=== PATIENT | female | born 1965 | race Asian ===

== ENCOUNTER 2017-01-06 19:32 | Emergency (ER) | payer SELFPAY ==
[2017-01-06] MEDS ORDERED: LORAZEPAM INJ 2 MG/1 ML VIAL ONE (19:43)
[2017-01-06] MEDS ORDERED: LEVETIRACETAM 1000 MG/NACL-ISO 1,000 MG/100 ML RTUPB IV ONE (19:48)
[2017-01-06] MEDS ORDERED: NORMAL SALINE 1000 ML 1,000 ML IV ONE ×2 (19:52→21:53)
--- NOTE | 2017-01-06 19:53 | ER Document Report ---
ED General - General Stated Complaint: POSSIBLE STROKE Time Seen by Provider: 01/06/17 19:36 Cannot obtain history due to: Unstable vital signs, Altered mental status Notes: Patient is a 51-year-old female with a past medical history of prior hemorrhagic strokes, prior seizures and hypertension, possible amyloidosis diagnosis who presents with EMS confused, left upper extremity contraction, after being found lying on the ground for an unknown period of time today by a family friend. Patient is nonverbal at time of arrival and unable to provide any meaningful history. EMS is uncertain of what language patient speaks although apparently she does speak some amount of [place]. She has not been following commands or talking to EMS. She currently lives by herself. She was last seen approximately 8 PM last evening. TRAVEL OUTSIDE OF THE [place] IN LAST 30 DAYS: No - Related Data Allergies/Adverse Reactions: No Known Allergies Allergy (Verified 11/07/14 18:23) Past Medical History - General Information source: Emergency Med Personnel Cannot obtain history due to: Mentally challenged, Unstable vital signs - Social History Smoking Status: Unknown if Ever Smoked Lives with: Alone Family History: Other - Unknown - Past Medical History Cardiac Medical History: Reports: Hx Hypertension Neurological Medical History: Reports: Hx Cerebrovascular Accident - HEMORRHAGIC , 05/01/2014, TRANSFERRED TO [facility] FOR Rx, Hx Seizures Endocrine Medical History: Reports: Hx Hyperthyroidism Review of Systems - Review of Systems -: Yes ROS unobtainable due to patient's medical condition Physical Exam - Vital signs Vitals: Temp Pulse Resp BP Pulse Ox 100.5 F H 98 13 201/135 H 98 01/06/17 19:35 01/06/17 19:35 01/06/17 19:35 01/06/17 19:35 01/06/17 19:35 Interpretation: Hypertensive, Febrile Notes: PHYSICAL EXAMINATION: GENERAL: Unresponsive to verbal questions, response to noxious stimuli with purposeful movements on the right upper and lower extremity. GCS 9 HEAD: Right-sided temporal parietal scalp hematoma EYES: Pupils equal round and reactive to light, extraocular movements intact, sclera anicteric, conjunctiva are normal. ENT: nares patent, oropharynx clear without exudates. Dry mucous membranes. NECK: supple without lymphadenopathy LUNGS: Breath sounds clear to auscultation bilaterally and equal. No wheezes rales or rhonchi. HEART: Regular tachycardia without murmurs ABDOMEN: Soft, bowel sounds present. No masses appreciated. EXTREMITIES: Normal range of motion, no pitting or edema. No cyanosis. NEUROLOGICAL: Purposeful movements of the right upper and lower extremities. Left upper extremity is in hyperflexion. Left lower external he hyperextends the pain but no purposeful movement PSYCH: GCS 9, no verbal response. SKIN: Warm, Dry, normal turgor, multiple bruises over the back, bilateral periscapular region and over the left hip Course - Re-evaluation Re-evalutation: 01/06/17 19:49 Patient arrives altered, nonverbal, a contracted left upper extremity although spontaneously moving all other extremities but does not follow commands. EMS is uncertain of what medications the patient normally takes for her baseline seizures and review of prior episodes in the emergency department does not document what patient takes at baseline although she does have a history of seizures. Shortly after arrival, patient proceeded to have a generalized tonic- clonic seizure with a mostly tonic component. She did have a brief period of desaturation during this episode to 55% which was relieved with a jaw thrust and supplemental oxygenation. Patient was given 2 mg of IV lorazepam with termination of the seizure. She will be loaded with 1000 mg of levetiracetam. Patient does have evidence of bruising along her back extensively as well as her her bilateral upper extremities and over her left hip. She was found on the floor of her house and currently lives by herself. History is obviously quite limited at this time secondary to patient's clinical presentation. However the provided history by EMS does elevate concern for possible intracranial hemorrhage given her fall in the shower 3 days ago and now altered mental status as well as recurrent seizures. Patient at time of arrival was noted to be severely hypertensive and again review of prior records shows that this is frequent for her presentations. She also has a low-grade rectal temperature of 100.5 after seizure activity. Will obtain [facility], CT of the head, chest x-ray, begin IV fluids, cultures and reassess frequently. Patient is critically ill at this time will require frequent reassessments. 01/06/17 20:06 I have been contacted by the radiologist was informed the patient has a parietal intraparenchymal hemorrhage as well as a subdural hematoma without any evidence of midline shift. Patient has had this in the past in [address] scan was reviewed. It appears patient may have a history of amyloidosis or a chronic vasculitis that she would have had at least 2 intercranial hemorrhages in the last 3 years at such a young age. On reassessment, patient's blood pressure continues to be elevated at 230 systolic. A nicardipine drip will be initiated targeting a systolic blood pressure 160 mmHg. I will continue to reassess the patient for need of airway protection. At the moment she is saturating 95% on room air, ventilating 16 times per minute. Vigorous sternal rub does cause the patient to grab my hand and begin to open her eyes but she does not answer my questions or follow my commands. At this time, I feel the risk of intubating the patient outweighs the benefit as she is protecting her airway at this time. 01/06/17 20:16 I have contacted [facility] for transfer as patient was transferred there in 2013 for spontaneous intracranial hemorrhage. Awaiting a callback 01/06/17 20:23 Patient is now moving all 4 extremity spontaneously and has required soft restraints. Will continue to monitor closely. Blood pressure is improving at this time 196 systolic and 5 of nicardipine. Will continue to titrate to a systolic goal of 160 01/06/17 20:53 I spoke with [facility] ICU attending, he has requested pressure be targeted to 140mmHG or less given possible history of amyloidosis. Will also obtain a CT of the C-spine and apply a cervical collar. Patient continues to protect her airway. With sternal rub she does again try to reach towards her right hand and is stopped by soft restraints and does open her eyes. 01/06/17 21:21 On repeat sternal rub patient no longer moves her left upper or lower extremity. She continues to purposely pull toward my hand with her right upper extremity and does open her eyes to noxious stimuli. Will continue to monitor closely for need for intubation. 01/06/17 21:52 Patient continues to spontaneously move her right upper and right lower extremity. Left lower extremity extends to pain as well as spontaneously extends but does not have purposeful movement. Left upper extremity remains in flexion against restraints. Will continue to monitor closely. CT of the cervical spine is noted to be normal. 01/07/17 02:15 Arterial blood gas is normal without any evidence of CO2 retention. Her neurologic exam remains unchanged GCS remains 8. 01/07/17 02:53 Transport has arrived for patient transfer. Neuro exam remains unchanged. She is appropriate for transfer at this time. - Vital Signs Vital signs: Temp Pulse Resp BP Pulse Ox 99.5 F 132 H 18 170/91 H 97 01/07/17 01:00 01/07/17 01:01 01/07/17 01:46 01/07/17 01:46 01/07/17 01:46 - Laboratory Result Diagrams: 01/06/17 19:39 01/06/17 19:39 Laboratory results interpreted by me: 01/06/17 01/06/17 01/07/17 19:39 19:39 01:45 WBC 13.2 H Seg Neutrophils % 88.7 H Lymphocytes % 5.3 L Absolute Neutrophils 11.7 H ABG pH 7.47 H ABG HCO3 28.2 H ABG Total CO2 29.4 H Potassium 3.3 L Chloride 97 L Carbon Dioxide 33 H Total Bilirubin 1.6 H Direct Bilirubin 0.5 H Creatine Kinase 155 H Total Protein 8.3 H Albumin 5.1 H - Diagnostic Test Radiology reviewed: Image reviewed, Reports reviewed Radiology results interpreted by me: 01/06/17 23:14 CT head: Pontine hemorrhage and right subdural parietal hemorrhage Critical Care Note - Critical Care Note Total time excluding time spent on procedures (mins): 90 Comments: Critical care time spent obtaining history from patient or surrogate, discussions with consultants, development of treatment plan with patient or surrogate, evaluation of patient's response to treatment, examination of patient , ordering and performing treatments and interventions, ordering and review of laboratory studies, re-evaluation of patient's condition, ordering and review of radiographic studies and review of old charts Discharge - Discharge Clinical Impression: Subdural hemorrhage, Pontine hemorrhage, Generalized seizure, Sinus tachycardia Condition: Critical Disposition: [facility]
[2017-01-06 19:58] LABS: ABSOLUTE LYMPHOCYTES (AUTO) 0.7 10^3/uL (0.5-4.7); ABSOLUTE MONOCYTES (AUTO) 0.8 10^3/uL (0.1-1.4); ABSOLUTE NEUT (AUTO) 11.7 10^3/uL (1.7-8.2); BASOPHILS % (AUTO) 0.1 % (0-2); HEMATOCRIT 43.4 % (36.0-47.0); HEMOGLOBIN 14.9 g/dL (12.0-15.5); HGB HCT DIFFERENCE 1.3; LYMPHOCYTES % (AUTO) 5.3 % (13-45); MEAN CORPUSCULAR HGB CONC 34.2 g/dL (32.0-36.0); MEAN CORPUSCULAR VOLUME 91 fl (80-97); MONOCYTES % (AUTO) 5.9 % (3-13); RED BLOOD COUNT 4.79 10^6/uL (3.72-5.28); RED CELL DISTRIBUTION WIDTH 13.1 % (11.5-14.0); SEGMENTED NEUTROPHILS % (AUTO) 88.7 % (42-78); WHITE BLOOD COUNT 13.2 10^3/uL (4.0-10.5)
[2017-01-06 20:01] LABS: PARTIAL THROMBOPLASTIN TIME 29.3 SEC (23.5-35.8)
[2017-01-06 20:07] LABS: PROTHROMBIN TIME 13.4 SEC (11.4-15.4)
--- NOTE | 2017-01-06 20:10 | RADIOLOGY REPORT (SQ) ---
EXAM DESCRIPTION: CT HEAD WITHOUT COMPLETED DATE/TIME: 01/06/2017 7:57 pm REASON FOR STUDY: stroke alert COMPARISON: CT brain 08/15/2015, 05/01/2014 TECHNIQUE: Axial images acquired through the brain without intravenous contrast. Images reviewed wi th bone, brain and subdural windows. Images stored on PACS. All CT scanners at this facility use dose modulation, iterative reconstruction, and/or weight based d osing when appropriate to reduce radiation dose to as low as reasonably achievable (ALARA). [facility]: Dose Right [facility]: CareDose [facility]: Dose Right [facility]: Teradose 4D [facility]: [employer] RADIATION DOSE: 64 mGy. LIMITATIONS: None. FINDINGS: There is an acute pontine hemorrhage, 2 cm x 1.7 cm in size best shown on axial image 15. There is an acute right parietal subdural hemorrhage 8 mm in thickness, and a trace right frontal fal x subdural acute hemorrhage about 1 mm in thickness. No mass effect or midline shift. There is extensive bifrontal and biparietal white matter disease, and an old infarct in the left late ral basal ganglia and right caudate. Bone windows demonstrate an old left nasal bone fracture. Paranasal sinuses, mastoid air cells are c lear. No skull fracture. IMPRESSION: Acute pontine hemorrhage, and 2 x 1.7 cm in size Acute right parietal subdural hemorrhage 8 mm in thickness Anterior falx subdural hemorrhage 1 mm in thickness Multiple bifrontal and biparietal white matter infarcts with old left lateral basal ganglia and right caudate infarcts. COMMENT: Pertinent findings on the imaging study reported as a CRITICAL RESULT to CARMEN pinedo t20:00 on 01/06/2017. Category of Critical Result: Acute intracranial hemorrhage TECHNICAL DOCUMENTATION: JOB ID: [id number] Quality ID # [id number]: Final reports with documentation of one or more dose reduction techniques (e.g., Au tomated exposure control, adjustment of the mA and/or kV according to patient size, use of iterative reconstruction technique) 2010 [employer]- All Rights Reserved
--- NOTE | 2017-01-06 20:14 | RADIOLOGY REPORT (SQ) ---
EXAM DESCRIPTION: CHEST SINGLE VIEW COMPLETED DATE/TIME: 01/06/2017 8:06 pm REASON FOR STUDY: stroke alert COMPARISON: 08/15/2015 EXAM PARAMETERS: NUMBER OF VIEWS: One view. TECHNIQUE: Single frontal radiographic view of the chest acquired. RADIATION DOSE: NA LIMITATIONS: None. FINDINGS: LUNGS AND PLEURA: No opacities, masses or pneumothorax. No pleural effusion. MEDIASTINUM AND HILAR STRUCTURES: No masses. Contour normal. HEART AND VASCULAR STRUCTURES: Heart normal in size. Normal vasculature. BONES: No acute findings. HARDWARE: None in the chest. OTHER: No other significant finding. IMPRESSION: NO ACUTE RADIOGRAPHIC FINDING IN THE CHEST. TECHNICAL DOCUMENTATION: JOB ID: [id number]
[2017-01-06] MEDS: NICARDIPINE HCL RTU, ISO-OS 20 MG/200 ML RTUINJ IV PRN (20:16)
[2017-01-06 20:17] LABS: ALANINE AMINOTRANSFERASE 27 U/L (9-52); ALBUMIN 5.1 g/dL (3.5-5.0); ALKALINE PHOSPHATASE 82 U/L (38-126); ANION GAP 14 (5-19); ASPARTATE AMINO TRANSFERASE 33 U/L (14-36); BILIRUBIN,DIRECT 0.5 mg/dL (0.0-0.4); BILIRUBIN,TOTAL 1.6 mg/dL (0.2-1.3); BLOOD UREA NITROGEN 17 mg/dL (7-20); CALCIUM 10.2 mg/dL (8.4-10.2); CARBON DIOXIDE 33 mmol/L (22-30); CHLORIDE 97 mmol/L (98-107); CREATINE KINASE 155 U/L (30-135); CREATININE RESULT 0.93 mg/dL (0.52-1.25); GLUCOSE 106 mg/dL (75-110); POTASSIUM 3.3 mmol/L (3.6-5.0); SODIUM 144.2 mmol/L (137-145); TOTAL PROTEIN 8.3 g/dL (6.3-8.2)
[2017-01-06] MEDS ORDERED: LORAZEPAM INJ 2 MG/1 ML VIAL IV ONE (20:23)
[2017-01-06 20:29] LABS: CREATINE KINASE MB 0.8 ng/mL (<4.55)
[2017-01-06 20:33] LABS: TROPONIN I 0.037 ng/mL
--- NOTE | 2017-01-06 21:19 | RADIOLOGY REPORT (SQ) ---
EXAM DESCRIPTION: CT CERVICAL SPINE WITHOUT COMPLETED DATE/TIME: 01/06/2017 9:06 pm REASON FOR STUDY: trauma COMPARISON: CT brain same date TECHNIQUE: Axial images acquired through the cervical spine without intravenous contrast. Images re viewed with lung, soft tissue and bone windows. Reconstructed coronal and sagittal MPR images review ed. Images stored on PACS. All CT scanners at this facility use dose modulation, iterative reconstruction, and/or weight based d osing when appropriate to reduce radiation dose to as low as reasonably achievable (ALARA). [facility]: Dose Right [facility]: CareDose [facility]: Dose Right [facility]: Teradose 4D [facility]: Smart [employer] RADIATION DOSE: Up-to-date CT equipment and radiation dose reduction techniques were employed. CTDIv ol: 7.6 mGy. DLP: 157 mGy-cm. mGy. LIMITATIONS: None. FINDINGS: ALIGNMENT: Anatomic. MINERALIZATION: Normal. VERTEBRAL BODIES: No fractures or dislocation. DISCS: In minimal posterior disc bulging at C3-4, C4-5, and C5-6 without central stenosis. Mild bila teral foraminal narrowing at C5-6. FACETS, LATERAL MASSES, POSTERIOR ELEMENTS: No fractures. No dislocation. No acute findings. HARDWARE: None in the spine. VISUALIZED RIBS: No fractures. LUNG APICES AND SOFT TISSUES: No significant or acute findings. OTHER: At the upper edge of the field of view, a pontine acute hemorrhage is present, better demonstr ated on the previous CT brain. IMPRESSION: No acute cervical spine fracture or malalignment TECHNICAL DOCUMENTATION: JOB ID: [id number] Quality ID # [id number]: Final reports with documentation of one or more dose reduction techniques (e.g., Au tomated exposure control, adjustment of the mA and/or kV according to patient size, use of iterative reconstruction technique) 2010 [employer]- All Rights Reserved
--- NOTE | 2017-01-06 23:51 | RADIOLOGY REPORT (SQ) ---
EXAM DESCRIPTION: HIP LEFT AP/LATERAL COMPLETED DATE/TIME: 01/06/2017 11:43 pm REASON FOR STUDY: left hip bruising COMPARISON: None. NUMBER OF VIEWS: Two views. TECHNIQUE: AP pelvis and additional frog-leg view of the left hip. LIMITATIONS: None. FINDINGS: MINERALIZATION: Osteopenia LEFT HIP: No fracture or dislocation. No worrisome bone lesions. RIGHT HIP: No fracture or dislocation. No worrisome bone lesions. PUBIS AND ISCHIUM: No fracture. PELVIS: No fracture. SACRUM: No fracture or dislocation. No worrisome bone lesions. LOWER LUMBAR SPINE: Degenerative disc changes at L4-5. SOFT TISSUES: No findings. OTHER: No other significant finding. IMPRESSION: No acute changes TECHNICAL DOCUMENTATION: JOB ID: [id number] [employer]- All Rights Reserved
[2017-01-07] MEDS: NICARDIPINE HCL RTU, ISO-OS 20 MG/200 ML RTUINJ IV PRN (01:53)
[2017-01-07 02:04] LABS: ARTERIAL BLOOD BASE EXCESS 4.4 mmol/L; ARTERIAL BLOOD O2 SATURATION 97.6 % (94-98)
[2017-01-07 04:07] VITALS: BP 158/89
--- NOTE | 2017-01-07 07:59 | EKG REPORT ---
SEVERITY:- BORDERLINE ECG - SINUS RHYTHM LVH BY VOLTAGE : Confirmed by: Nehemias Peña MD 07-Jan-2017 07:58:40
== END 2017-01-07 02:50 | disposition short-term general hospital (02) ==
LOC: ER 19:32
DX: I62.00 Nontraumatic subdural hemorrhage, unspecified (principal); G40.409 Other generalized epilepsy and epileptic syndromes, not intractable, without status epilepticus; R00.0 Tachycardia, unspecified
CPT/HCPCS: 93005; 36415; 82553; 82803; 82550; 85025; 85610; 85730; 80053; 84484; 71010; 73502; 70450; 72125; 93010; L0120; L0172; J2060; J7030; J3490 ×2; J1953